=== PATIENT | female | born 1970 | race Asian ===

== ENCOUNTER 2019-03-16 13:09 | Emergency (ER) | payer SELFPAY ==
--- NOTE | 2019-03-16 14:40 | ED ---
Respiratory - HPI Summary HPI Summary: Pt. is a 48 y.o female who presents to the ER for re-evaluation of ongoing cough. Pt. is from [place] and is visiting her son who is a student at [employer]. Pt. does not speak Welsh. Offered physician coding specialist but pt. and her son are comfortable with son translating. Son states that pt. has had a cough for roughly 3 weeks. Cough is productive. Son states that she saw her doctor in [place] and had CXR, CT of chest, blood work and sputum culture. Son states that CXR was abnormal and CT was done for further evaluation. He is unsure of CT results. Son states she was rx cefixime last week. Son states that they were contacted today by PCP and informed sputum culture is growing pseudomonas which is not covered by cefixime. Pt. presenting for antibx change. She denies past medical hx. Denies SOB, CP, abd. pain, fever, V/D. Sxs are mild to moderate in severity. No current modifying factors. - History of Current Complaint Chief Complaint: EDGeneral Stated Complaint: COUGH,MUCUS PER PT SON Time Seen by Provider: 03/16/19 14:16 Hx Obtained From: Patient, Family/Sponge Diver Pain Intensity: 4 - Allergy/Home Medications Allergies/Adverse Reactions: Allergies Allergy/AdvReac Type Severity Reaction Status Date / Time No Known Allergies Allergy Verified 03/16/19 13:14 Home Medications: Home Medications ceFIXime [Suprax] 100 mg PO BID 03/16/19 [History Confirmed 03/16/19] PMH/Surg Hx/FS Hx/Imm Hx Previously Healthy: Yes Infectious Disease History: No Infectious Disease History: Reports: Traveled Outside the in Last 30 Days - [place] - Family History Known Family History: Positive: Non-Contributory - Social History Occupation: Unemployed Lives: With Family Alcohol Use: None Substance Use Type: Reports: None Smoking Status (MU): Never Smoked Tobacco Review of Systems Constitutional: Negative Negative: Fever, Chills ENT: Negative Positive: Other Negative: Palpitations, Chest Pain Positive: Cough. Negative: Shortness Of Breath Gastrointestinal: Negative Negative: Abdominal Pain, Vomiting, Diarrhea Genitourinary: Negative Musculoskeletal: Negative Skin: Negative Neurological: Negative All Other Systems Reviewed And Are Negative: Yes Physical Exam Triage Information Reviewed: Yes Vital Signs On Initial Exam: Initial Vitals Temp Pulse Resp BP Pulse Ox 97.9 F 92 16 115/67 95 03/16/19 13:10 03/16/19 13:10 03/16/19 13:10 03/16/19 13:10 03/16/19 13:10 Vital Signs Reviewed: Yes Appearance: Positive: Well-Appearing - Pt. sitting on bed in NAD. Well appearing. Son present. Skin: Positive: Warm, Dry Head/Face: Positive: Normal Head/Face Inspection Eyes: Positive: Normal, EOMI ENT: Positive: Pharynx normal, TMs normal Neck: Positive: Supple Respiratory/Lung Sounds: Positive: Other - Rhonchi and mild wheeze on left.. Negative: Stridor, Tracheal Deviation, Unable to speak in full sentences Cardiovascular: Positive: Normal, RRR Musculoskeletal: Positive: Normal, Strength/ROM Intact Neurological: Positive: Normal, CN Intact II-III Psychiatric: Positive: Affect/Mood Appropriate Diagnostics - Vital Signs Vital Signs Temp Pulse Resp BP Pulse Ox 03/16/19 13:10 97.9 F 92 16 115/67 95 - Laboratory Lab Statement: Any lab studies that have been ordered have been reviewed, and results considered in the medical decision making process. Disposition - Course Course Of Treatment: Pt. presenting with ongoing cough. She is afebrile. O2 saturation is 95% on RA which is normal. Will repeat CXR. CXR per radiology: IMPRESSION: PATCHY AIRSPACE DISEASE WITH A 2.8 CM NODULE OVERLYING THE LEFT HEART BORDER. WHILE THIS. MAY REPRESENT AN UNUSUAL APPEARANCE OF CONSOLIDATION , PARENCHYMAL NEOPLASM IS ALSO WITHIN. THE DIFFERENTIAL. RECOMMEND FURTHER EVALUATION WITH CONTRAST-ENHANCED CT OF THE CHEST. On re-exam pt. sitting comfortably. Results discussed. On further questioning pt. and son are now stating that CT chest and sputum culture were done in 2017. I am assuming CT was done for Questionable neoplasm seen on today's CXR but unsure. Pt. and son are note sure. Recommend to pt. and son furhter workup with labs and possible repeat CT scan today but they prefer to wait and f.u with regular PCP. Pt. and son aware that mass could be cancerous and further evaluation will need to be done NAFISA. Will switch rx to levaquin. Ventolin rx for wheeze. Pt. will make an apt. with the [facility] in 2-3 days. Pt. will return to ER if sxs change or worsen. - Diagnoses Provider Diagnoses: Pneumonia, Lung mass Discharge - Sign-Out/Discharge Documenting (check all that apply): Patient Departure Patient Received Moderate/Deep Sedation with Procedure: No - Discharge Plan Condition: Good Disposition: HOME Prescriptions: Albuterol HFA INHALER* [Ventolin HFA Inhaler*] 2 puff INH Q4H PRN #1 mdi PRN Reason: Wheezing Levofloxacin TAB* [Levaquin TAB*] 750 mg PO DAILY #5 tab Patient Education Materials: Bacterial Pneumonia (ED), Pulmonary Nodules (ED) Referrals: [facility] [Outside] Additional Instructions: Call the [facility] today to schedule a follow up appointment within one week Take Levaquin as directed Inhaler as directed Increase fluids and rest Tylenol or Motrin for discomfort as directed Return to ER if symptoms change or worsen - Billing Disposition and Condition Condition: GOOD Disposition: Home
[2019-03-16 15:51] VITALS: BP 118/65
== END 2019-03-16 15:49 | disposition home or self-care (01) ==
LOC: ED 13:09
DX: J18.9 Pneumonia, unspecified organism (principal); R91.8 Other nonspecific abnormal finding of lung field
CPT/HCPCS: 71046; 99282